=== PATIENT | female | born 1935 | race Caucasian/White ===

== ENCOUNTER 2016-05-13 14:11 | Emergency (ER) | payer MEDICARE, OTHER | END 2016-05-13 21:40 | disposition short-term general hospital (02) | LOC: ER 14:11 | DX: A41.9 Sepsis, unspecified organism (principal); R65.21 Severe sepsis with septic shock; I10 Essential (primary) hypertension; E11.9 Type 2 diabetes mellitus without complications; E78.5 Hyperlipidemia, unspecified; D64.9 Anemia, unspecified | CPT/HCPCS: 36415; 51702; 87502; 96361; 96365; 96366; 96367; 96368; J0456; J0696 ==